=== PATIENT | male | born 1980 | race Caucasian/White ===

== ENCOUNTER 2017-04-06 14:09 | Emergency (ER) | payer OTHER ==
[~2017-04-06] VITALS: Ht 190.5 cm; Wt 136.1 kg
[~2017-04-06 14:09] MED LIST: NORCO 5-325 TA1 EACH PO; [UNRECOGNIZED DRUG - REMARK]
[2017-04-06] MEDS ORDERED: ZOLOFT 50 MG TA50 M1 PO (14:50)
[2017-04-06] MEDS ORDERED: KEFLEX500 M1 PO (15:58)
[2017-04-06] MEDS ORDERED: HYDROCODONE-AP1 EAC6 PO (15:58)
== END 2017-04-06 17:05 | disposition home or self-care (01) ==
LOC: ER 14:09
DX: S61.411A Laceration without foreign body of right hand, initial encounter (principal); J45.909 Unspecified asthma, uncomplicated; W26.9XXA Contact with unspecified sharp object(s), initial encounter; Y93.89 Activity, other specified; Y92.89 Other specified places as the place of occurrence of the external cause; Y99.8 Other external cause status

== ENCOUNTER 2017-04-23 08:21 | Emergency (ER) | payer OTHER ==
[~2017-04-23] VITALS: Ht 190.5 cm; Wt 136.1 kg
[~2017-04-23 08:21] MED LIST changes: +HYDROCODONE-AP1 EAC6 PO; +KEFLEX500 M1 PO; +ZOLOFT 50 MG TA50 M1 PO
== END 2017-04-23 09:31 | disposition home or self-care (01) ==
LOC: ER 08:21
DX: S61.411D Laceration without foreign body of right hand, subsequent encounter (principal); J45.909 Unspecified asthma, uncomplicated; F32.9 Major depressive disorder, single episode, unspecified; X58.XXXD Exposure to other specified factors, subsequent encounter